=== PATIENT | male | born 1960 | race African-American/Black ===

== ENCOUNTER 2025-02-10 23:07 | Emergency (ER) | payer MEDICARE, MEDICAID ==
[~2025-02-10] VITALS: Ht 185.4 cm; Wt 88.6 kg
[2025-02-10 23:18] VITALS: BP 108/64; PULSE 102; RESP 18; TEMP 97.9; O2SAT 99
[2025-02-11 00:10] LABS: APPEARANCE,URINE CLEAR (CLEAR); BILIRUBIN,URINE NEGATIVE (NEGATIVE); COLOR,URINE LIGHT YELLOW (YELLOW); GLUCOSE, URINE (UA) NEGATIVE (NEGATIVE); KETONES,URINE NEGATIVE (NEGATIVE); LEUKOCYTE ESTERASE ,URINE SMALL (NEGATIVE); NITRATE,URINE NEGATIVE (NEGATIVE); OCCULT BLOOD,URINE TRACE (NEGATIVE); PROTEIN,URINE TRACE mg/dL (NEGATIVE); SPECIFIC GRAVITIY, URINE 1.011 (1.003-1.030); UROBILINOGEN,URINE <=1.0 mg/dL (<=1.0)
[2025-02-11 00:10] LABS: ANION GAP 8 mmol/L (8-16); CALCIUM, TOTAL 9.4 mg/dL (8.8-10.5); CARBON DIOXIDE 28 mmol/L (22-29); CHLORIDE 100 mmol/L (98-107); CREATININE 1.57 mg/dL (0.60-1.30); GLOMERULAR FILTR. RATE CALC 54 mL/min (>60); GLUCOSE,RANDOM 114 mg/dL (70-110); POTASSIUM 4.6 mmol/L (3.5-5.1); SODIUM SERUM 136 mmol/L (136-145); UREA NITROGEN, BLOOD 19 mg/dL (7-18)
[2025-02-11 00:14] LABS: BASOPHILS % (AUTO) 0.7 % (0.0-2.0); EOSINOPHILS % (AUTO) 0.9 % (1.0-6.0); HEMATOCRIT 44.9 % (41-53); HEMOGLOBIN 14.9 g/dL (13.5-17.5); LYMPHOCYTES # (AUTO) 2.4 K/uL (1.0-4.8); LYMPHOCYTES % (AUTO) 31.1 % (22.0-44.0); MEAN CORPUSCULAR HEMOGLOBIN 28.7 pg (26.0-34.0); MEAN CORPUSCULAR HGB CONC 33.1 G/dL (31.0-37.0); MEAN CORPUSCULAR VOLUME 87 fL (80-100); MONOCYTES % (AUTO) 12.3 % (2.0-9.0); NEUTROPHILS # (AUTO) 4.3 K/uL (1.8-7.7); PLATELET COUNT (AUTO) 363 K/uL (150-450); RED CELL DISTRIBUTION WIDTH 13.8 % (11.5-14.5); WHITE BLOOD COUNT (AUTO) 7.8 K/uL (4.5-11.0)
[2025-02-11 00:19] LABS: LIPASE 129 U/L (16-77); TROPONIN I-HIGH SENSITIVITY 28 ng/L (<76)
[2025-02-11 00:38] LABS: RBC,URINE 0-2 /HPF (0-2)
[2025-02-11 00:39] LABS: BACTERIA,URINE Few /HPF (None Seen); SQUAMOUS EPITHELIAL CELL,UR Rare /LPF (None Seen)
[2025-02-11] MEDS ORDERED: CEPH-556 PO (01:30)
[2025-02-11] MEDS ORDERED: TAMS0.4C94 PO (01:30)
[2025-02-11] MEDS: TAMSULOSIN HCL 0.4 MG CAPSULE PO ONE (02:04)
[2025-02-11] MEDS: CEPHALEXIN MONOHYDRATE 500 MG CAPSULE PO ONE (02:04)
== END 2025-02-11 03:54 | disposition home or self-care (01) ==
LOC: EMS 23:09
DX: R33.9 Retention of urine, unspecified (principal); F15.10 Other stimulant abuse, uncomplicated; N28.9 Disorder of kidney and ureter, unspecified
CPT/HCPCS: 51702; 80048; 81001; 83690; 84484; 85025; 99284

== ENCOUNTER 2025-02-17 09:25 | Emergency (ER) | payer MEDICARE, MEDICAID ==
[~2025-02-17] VITALS: Ht 185.4 cm; Wt 86.4 kg
[~2025-02-17 09:25] MED LIST: CEPH-556 PO; TAMS0.4C94 PO
[2025-02-17 09:30] VITALS: TEMP 97.9
[2025-02-17 09:55] LABS: BASOPHILS % (AUTO) 1.3 % (0.0-2.0); EOSINOPHILS % (AUTO) 2.9 % (1.0-6.0); HEMOGLOBIN 12.6 g/dL (13.5-17.5); LYMPHOCYTES # (AUTO) 1.5 K/uL (1.0-4.8); MEAN CORPUSCULAR HEMOGLOBIN 27.9 pg (26.0-34.0); MEAN CORPUSCULAR HGB CONC 32.3 G/dL (31.0-37.0); MEAN CORPUSCULAR VOLUME 87 fL (80-100); MONOCYTES # (AUTO) 0.4 K/uL (0.1-1.0); MONOCYTES % (AUTO) 9.1 % (2.0-9.0); NEUTROPHILS # (AUTO) 2.8 K/uL (1.8-7.7); NEUTROPHILS % (AUTO) 56.7 % (40.0-70.0); PLATELET COUNT (AUTO) 321 K/uL (150-450); RED BLOOD CELL COUNT(AUTO) 4.51 MIL/uL (4.50-5.90); WHITE BLOOD COUNT (AUTO) 4.9 K/uL (4.5-11.0)
[2025-02-17 10:07] LABS: ANION GAP 10 mmol/L (8-16); CALCIUM, TOTAL 8.7 mg/dL (8.8-10.5); CARBON DIOXIDE 26 mmol/L (22-29); CHLORIDE 103 mmol/L (98-107); CREATININE 1.01 mg/dL (0.60-1.30); GLOMERULAR FILTR. RATE CALC > 60 mL/min (>60); GLUCOSE,RANDOM 109 mg/dL (70-110); POTASSIUM 3.8 mmol/L (3.5-5.1); SODIUM SERUM 139 mmol/L (136-145); UREA NITROGEN, BLOOD 7 mg/dL (7-18)
[2025-02-17 11:23] VITALS: BP 149/87; PULSE 68; RESP 18; O2SAT 98
== END 2025-02-17 11:24 | disposition home or self-care (01) ==
LOC: EMS 09:26
DX: Z46.6 Encounter for fitting and adjustment of urinary device (principal); R79.89 Other specified abnormal findings of blood chemistry
CPT/HCPCS: 80048; 85025; 99283

== ENCOUNTER 2025-07-07 11:14 | Emergency (ER) | payer MEDICARE, MEDICAID ==
[~2025-07-07] VITALS: Ht 185.4 cm; Wt 77.3 kg
[~2025-07-07 11:14] MED LIST changes: -CEPH-556 PO
[2025-07-07 11:24] VITALS: TEMP 97.7
[2025-07-07 11:59] LABS: COVID AG,FIA SOURCE NASAL SWAB
[2025-07-07 12:26] LABS: SARS-COV2 (COVID) ANTIGEN,FIA Negative (Negative)
[2025-07-07 12:27] LABS: INFLUENZA TYPE A NEGATIVE FOR TYPE A (NEGATIVE); INFLUENZA TYPE B NEGATIVE FOR TYPE B (NEGATIVE)
[2025-07-07 13:40] LABS: PLATELET COUNT (AUTO) 330 K/uL (150-450); RED BLOOD CELL COUNT(AUTO) 5.16 MIL/uL (4.50-5.90); RED CELL DISTRIBUTION WIDTH 14.3 % (11.5-14.5); WHITE BLOOD COUNT (AUTO) 4.7 K/uL (4.5-11.0)
[2025-07-07 13:48] LABS: CALCIUM, TOTAL 9.4 mg/dL (8.8-10.5); CREATININE 0.92 mg/dL (0.60-1.30); GLOMERULAR FILTR. RATE CALC > 60 mL/min (>60); GLUCOSE,RANDOM 104 mg/dL (70-110); SODIUM SERUM 134 mmol/L (136-145); UREA NITROGEN, BLOOD 15 mg/dL (7-18)
[2025-07-07 14:07] LABS: APPEARANCE,URINE CLEAR (CLEAR); GLUCOSE, URINE (UA) NEGATIVE (NEGATIVE); LEUKOCYTE ESTERASE ,URINE NEGATIVE (NEGATIVE); NITRATE,URINE NEGATIVE (NEGATIVE); OCCULT BLOOD,URINE NEGATIVE (NEGATIVE); SPECIFIC GRAVITIY, URINE 1.022 (1.003-1.030)
[2025-07-07 15:00] VITALS: BP 139/79; PULSE 77; RESP 18; O2SAT 96
[2025-07-07] MEDS ORDERED: AMOX-457 PO (15:20)
== END 2025-07-07 19:21 | disposition home or self-care (01) ==
LOC: EMS 11:14
DX: J18.0 Bronchopneumonia, unspecified organism (principal); R50.9 Fever, unspecified; R53.1 Weakness; R53.83 Other fatigue; Z79.899 Other long term (current) drug therapy; Z20.822 Contact with and (suspected) exposure to COVID-19
CPT/HCPCS: 71045; 74176; 80048; 81003; 85025; 87804; 99284; 36415-L1; 36415-TC

== ENCOUNTER 2025-07-22 20:39 | Emergency (ER) | payer MEDICARE, MEDICAID ==
[~2025-07-22] VITALS: Ht 185.4 cm; Wt 86.4 kg
[~2025-07-22 20:39] MED LIST changes: +AMOX-457 PO
[2025-07-22 20:44] VITALS: TEMP 97.9
[2025-07-22 21:58] LABS: PLATELET COUNT (AUTO) 319 K/uL (150-450); RED BLOOD CELL COUNT(AUTO) 4.99 MIL/uL (4.50-5.90); RED CELL DISTRIBUTION WIDTH 14.3 % (11.5-14.5); WHITE BLOOD COUNT (AUTO) 5.0 K/uL (4.5-11.0)
[2025-07-22 22:03] LABS: CALCIUM, TOTAL 9.2 mg/dL (8.8-10.5); CREATININE 0.86 mg/dL (0.60-1.30); GLOMERULAR FILTR. RATE CALC > 60 mL/min (>60); GLUCOSE,RANDOM 104 mg/dL (70-110); SODIUM SERUM 138 mmol/L (136-145); UREA NITROGEN, BLOOD 16 mg/dL (7-18)
[2025-07-22 22:13] LABS: TROPONIN I-HIGH SENSITIVITY 6 ng/L (<76)
[2025-07-22] MEDS ORDERED: BENZ-227 PO (23:09)
[2025-07-22] MEDS: IBUPROFEN 400 MG TABLET PO ONE (23:11)
[2025-07-22] MEDS: BENZONATATE 100 MG CAPSULE PO ONE (23:13)
[2025-07-22 23:15] VITALS: BP 115/78; PULSE 80; RESP 20; O2SAT 97
== END 2025-07-22 23:37 | disposition home or self-care (01) ==
LOC: EMS 20:39
DX: J06.9 Acute upper respiratory infection, unspecified (principal); B97.89 Other viral agents as the cause of diseases classified elsewhere; R05.9 Cough, unspecified; R07.89 Other chest pain; Z79.899 Other long term (current) drug therapy; Z76.0 Encounter for issue of repeat prescription
CPT/HCPCS: 99285; 71045; 80048; 83880; 84484; 85025; 36415; 93005; J8540

== ENCOUNTER 2025-08-18 14:39 | Emergency (ER) | payer MEDICARE, MEDICAID ==
[~2025-08-18] VITALS: Ht 180.3 cm; Wt 84.1 kg
[~2025-08-18 14:39] MED LIST changes: +BENZ-227 PO
[2025-08-18 15:23] LABS: PLATELET COUNT (AUTO) 273 K/uL (150-450); RED BLOOD CELL COUNT(AUTO) 5.29 MIL/uL (4.50-5.90); RED CELL DISTRIBUTION WIDTH 13.9 % (11.5-14.5); WHITE BLOOD COUNT (AUTO) 5.7 K/uL (4.5-11.0)
[2025-08-18 15:24] VITALS: TEMP 98.2
[2025-08-18] MEDS: ONDANSETRON HCL 4 MG/2 ML VIAL IVP ONE (15:32)
[2025-08-18] MEDS: MORPHINE SULFATE 2 MG/ML SYRINGE IVP ONE (15:32)
[2025-08-18] MEDS: SODIUM CHLORIDE 0.9% 1,000 ML IV ONE (15:33)
[2025-08-18 15:37] LABS: ASPARTATE AMINOTRANSFERASE 27.0 U/L (15-37); TOTAL PROTEIN, SERUM 8.3 g/dL (6.4-8.2)
[2025-08-18] MEDS: FAMOTIDINE 20 MG/2 ML VIAL IVP ONE (15:37)
[2025-08-18 15:38] LABS: CALCIUM, TOTAL 9.2 mg/dL (8.8-10.5); CREATININE 0.86 mg/dL (0.60-1.30); GLOMERULAR FILTR. RATE CALC > 60 mL/min (>60); GLUCOSE,RANDOM 127 mg/dL (70-110); SODIUM SERUM 135 mmol/L (136-145); UREA NITROGEN, BLOOD 11 mg/dL (7-18)
[2025-08-18 15:45] VITALS: BP 114/84; PULSE 89; RESP 18; O2SAT 98
[2025-08-18 15:47] LABS: TROPONIN I-HIGH SENSITIVITY 4 ng/L (<76)
[2025-08-18 16:32] LABS: COVID AG,FIA SOURCE NASAL SWAB
[2025-08-18 16:58] LABS: INFLUENZA TYPE A NEGATIVE FOR TYPE A (NEGATIVE); INFLUENZA TYPE B NEGATIVE FOR TYPE B (NEGATIVE)
[2025-08-18 17:00] LABS: SARS-COV2 (COVID) ANTIGEN,FIA Negative (Negative)
[2025-08-18 17:25] LABS: TROPONIN I-HIGH SENSITIVITY 4 ng/L (<76)
[2025-08-18] MEDS ORDERED: ACET-3385 PO (18:01)
[2025-08-18] MEDS ORDERED: ONDA-104 PO (18:01)
[2025-08-18] MEDS: ASPIRIN/ACETAMINOPHEN/CAFFEINE 250-250-65 MG TABLET PO ONE (18:05)
== END 2025-08-18 18:25 | disposition home or self-care (01) ==
LOC: EMS 14:39
DX: K29.70 Gastritis, unspecified, without bleeding (principal); R11.2 Nausea with vomiting, unspecified; R51.9 Headache, unspecified; F12.90 Cannabis use, unspecified, uncomplicated; Z79.899 Other long term (current) drug therapy; Z20.822 Contact with and (suspected) exposure to COVID-19
CPT/HCPCS: 99285; 96374; 70450; 96375; 71045; 96361; 87426; 80048; 80076; 83690; 83880; 84484; 85025; 87081; 87430; 87804; 36415; 93005; J3490; J2270; J2405; J7030